=== PATIENT | female | born 1965 | race Caucasian/White ===

== ENCOUNTER 2017-05-06 15:21 | Inpatient (IN) | payer OTHER ==
[~2017-05-06] VITALS: Ht 160 cm; Wt 52.6 kg
[2017-05-06 17:43] LABS: HEMOGLOBIN 12.3 G/DL (11.9-15.5); MCH 31.1 PG (29.0-34.0); MCHC 35.1 G/DL (30.0-36.0); MCV 88.4 FL (83-99); PLATELET COUNT 222 K/uL (156-360); RBC DIS.WIDTH-CV 11.9 % (11.8-14.6); RBC DIS.WIDTH-SD 38.7 % (39-53); RED BLOOD COUNT 3.96 M/uL (3.80-5.20); WHITE BLOOD COUNT 7.2 K/uL (4.1-10.2)
[2017-05-06 17:50] LABS: APPEARANCE CLEAR ((CLEAR)); BILIRUBIN NEGATIVE; BLOOD NEGATIVE; COLOR YELLOW ((YELLOW)); GLUCOSE (STRIP) NEGATIVE; KETONES NEGATIVE; LEUKOCYTES NEGATIVE; NITRITE NEGATIVE; PROTEIN (STRIP) NEGATIVE; SPECIFIC GRAVITY 1.019 (1.000-1.030); UROBILINOGEN 0.2 MG/DL (0.2-1.0)
[2017-05-06 17:51] LABS: ALBUMIN 4.1 g/dL (3.2-4.8); CHLORIDE 109 mEq/L (99-109); POTASSIUM 4.2 mEq/L (3.7-5.4); SODIUM 140 mEq/L (136-147)
[2017-05-06 17:53] LABS: GLUCOSE 82 mg/dL (70-99); TOTAL PROTEIN 6.4 g/dL (6.4-8.3)
[2017-05-06 17:55] LABS: TOTAL BILIRUBIN 0.4 mg/dL (0.0-1.0)
[2017-05-06 17:56] LABS: SERUM ETHYL ALCOHOL < 10 mg/dL
[2017-05-06 17:57] LABS: CREATININE 0.7 mg/dL (0.6-1.3); GFR ESTIMATE (CALCULATED) > 59 mL/min/
[2017-05-06 17:58] LABS: ALKALINE PHOSPHATASE 37 IU/L (3-129)
[2017-05-06 17:59] LABS: AST (GOT) 21 IU/L (2-34); UREA NITROGEN (BUN) 13 mg/dL (9-23)
[2017-05-06 18:00] LABS: SALICYLATE < 5.0 MG/DL (15-30)
[2017-05-06 18:01] LABS: ALT (GPT) 26 IU/L (3-49)
[2017-05-06] MEDS ORDERED: AMPHETAMINE SAL20 MG PO (19:23)
[2017-05-06] MEDS ORDERED: WELLBUTRIN100 MG PO (19:24)
[2017-05-06] MEDS ORDERED: LAMICTAL100 MG PO (19:25)
[2017-05-06 20:49] LABS: AMPHETAMINE PRESUMPTIVE POSITIVE (500 ng/mL); BARBITURATES NEGATIVE (200 ng/mL); BENZODIAZEPINES NEGATIVE (150 ng/mL); COCAINE NEGATIVE (150 ng/mL); METHADONE NEGATIVE (200 ng/mL); METHAMPHETAMINE NEGATIVE (500 ng/mL); OPIATES (MORPHINE) NEGATIVE (100 ng/mL); OXYCODONE NEGATIVE (100 ng/mL); PHENCYCLIDINE NEGATIVE (25 ng/mL); PROPOXYPHENE NEGATIVE (300 ng/mL); THC CANNABINOIDS NEGATIVE (50 ng/mL); TRICYCLIC ANTIDEPRESSANTS NEGATIVE (300 ng/mL)
[2017-05-06 20:50] LABS: BUPRENORPHINE NEGATIVE (10 ng/mL)
[2017-05-06 20:56] LABS: ACETAMINOPHEN (TYLENOL) < 10 MCG/ML (10-30)
[2017-05-06 21:13] VITALS: BP 135/78
[2017-05-07 07:37] VITALS: BP 117/62
[2017-05-07 16:03] VITALS: BP 109/69
[2017-05-08 07:47] VITALS: BP 110/68
[2017-05-08 15:54] VITALS: BP 99/55
[2017-05-09 07:12] VITALS: BP 113/65
[2017-05-09 16:01] VITALS: BP 101/59
[2017-05-10 07:17] VITALS: BP 115/62
[2017-05-10] MEDS ORDERED: LAMICTAL100 MG PO (09:22)
[2017-05-10] MEDS ORDERED: ARIPIPRAZOLE10 MG PO (09:22)
[2017-05-10 15:38] VITALS: BP 95/50
[2017-05-11 07:45] VITALS: BP 120/69
[2017-05-11] MEDS ORDERED: NALTREXONE HCL50 MG PO (11:10)
[2017-05-11] MEDS ORDERED: HYDROXYZINE PAM25 MG PO (12:59)
== END 2017-05-11 13:02 | disposition home or self-care (01) | DRG 885 ==
LOC: EME 15:21 → EDOF 19:21 → 1WEST 19:21 → ENRESERV 20:38 → 1WEST 21:08
PROVIDERS: Physician Assistant Medical
DX: F31.2 Bipolar disorder, current episode manic severe with psychotic features (principal); F23 Brief psychotic disorder; R45.851 Suicidal ideations; F42.9 Obsessive-compulsive disorder, unspecified; F43.10 Post-traumatic stress disorder, unspecified; F90.9 Attention-deficit hyperactivity disorder, unspecified type; F41.9 Anxiety disorder, unspecified; F15.10 Other stimulant abuse, uncomplicated; Y90.0 Blood alcohol level of less than 20 mg/100 ml; G47.00 Insomnia, unspecified; R45.4 Irritability and anger; Z91.14 Patient's other noncompliance with medication regimen; Z91.19 Patient's noncompliance with other medical treatment and regimen; Z59.9 Problem related to housing and economic circumstances, unspecified; Z56.0 Unemployment, unspecified; Z88.0 Allergy status to penicillin
CPT/HCPCS: 80053; 81003; 84443; 84999; 85027; 90686; 90839; 97150 GO; 97165 GO; 99281; 99284; G0480; Q0177